=== PATIENT | female | born 1990 | race African-American/Black ===

== ENCOUNTER 2022-05-30 19:49 | Emergency (ER) | payer MEDICAID, SELFPAY ==
[2022-05-30 20:02] VITALS: BP 119/70; PULSE 77; RESP 14; TEMP 36.4; O2SAT 99; BMI 32.0
--- NOTE | 2022-05-30 20:19 | ED.ABDPAIN ---
HPI - Abdominal Pain General Chief Complaint: Abdominal Pain Stated Complaint: LUQ Pain Time Seen by Provider: 05/30/22 20:19 Source: patient and RN notes reviewed Mode of arrival: ambulatory Limitations: no limitations History of Present Illness HPI narrative: 31-year-old woman presenting to the emergency department with concern of left sided upper abdominal/rib area pain. Can be pleuritic at times. She has not had any recent cough or cold symptoms. No fever. She is not actually short of breath. No rash. Pain can be worse to sit up. She describes as a pressure/stitch/aching pain. At worst the shooting. Has been going on for 6+ days. Just is not resolving. She has not tried any treatment. Has never had anything like this before. Keeps coming back to describing it as kind of a stitch like he might experience when running. Relatively constant dull at times just does not notice it perhaps is it diminishes. Or perhaps as she is getting distracted. Does have an underlying history of IBS. She was wondering if maybe this was possibly related though at the same time says this is really different though than what she might expect. On exam the area that she is having pain in her abdomen at least would be the area where IBS might affect her. She has had a colonoscopy been noting elevated white count at that time but negative celiac testing. She notes herself to become hypokalemic with the prep requiring treatment in the emergency department. Early on the days of COVID a believe ?delta? had a ?double pneumonia? requiring a days of hospitalization. 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 Only other symptom remaining from that is sometimes she feels a mental or the word ?glitch?. We talking and suddenly just ?glitches?. Does have some lower back discomfort at this point. No hematuria no dysuria frequency urgency. She does acknowledge a family history of kidney stones particularly her aunt and maybe a cousin. Possibly her dad as well. Not a personal history. There has been no trauma to this area. She is not describing diarrhea or constipation. Presented to the urgent care earlier today and advised to go to the emergency department as did not feel he could do full workup at that time. Related Data Previous Rx's Medication Instructions Recorded indomethacin 50 mg capsule 50 mg PO TID #18 caps 05/30/22 Allergies Allergy/AdvReac Type Severity Reaction Status Date / Time No Known Drug Allergies Allergy Verified 05/30/22 20:06 Review of Systems Status of ROS Reports: 10 or more systems reviewed and unremarkable except as noted in History and below [facility] Social History Smoking Status: Never smoker How often do you have a drink containing alcohol: monthly or less AUDIT-C Alcohol total score: 1 Non-prescribed substance use: denies use Exam Narrative: Exam Narrative: Pleasant. NAD. Transitions without significant difficulty. Breathing easily. Cranial nerves 2-12 intact Moving all extremities without difficulty and well perfused peripherally. Lungs are clear with equal expansion excursion Cardiovascular with regular rate and rhythm no murmurs rubs or gallops appreciated. Abdomen with moderate tenderness to palpation of the left anterior lateral rib margin and left upper abdomen. Normoactive bowel sounds. No masses. Const: Vital Signs, click to edit/add: Vital Signs - 24 hr 05/30/22 20:02 Temperature 97.5 F L Pulse Rate [Pulse Oximeter] 77 Respiratory Rate 14 Blood Pressure [Ri ght Upper Arm] 119/70 Pulse Oximetry 99 Oxygen Delivery Me thod Room Air Documenting provider has reviewed patient's vital signs: yes Course Course Hospital Course: Interview and exam as above. Discussed pain management needs. Ordered for ibuprofen. Vital Signs Vital signs: Initial Vital Signs Temperature 97.5 F L 05/30/22 20:02 Temperature Source Temporal Artery Scan 05/30/22 20:02 Pulse Rate 77 05/30/22 20:02 Pulse Rhythm 05/30/22 20:02 Respiratory Rate 14 05/30/22 20:02 Blood Pressure 119/70 05/30/22 20:02 Blood Pressure Mean 86 05/30/22 20:02 Blood Pressure Position Sitting 05/30/22 20:02 Pulse Oximetry 99 05/30/22 20:02 Oxygen Delivery Method 05/30/22 20:02 Vital Signs Temperature 97.5 F L 05/30/22 20:02 Pulse Rate 77 05/30/22 20:02 Respiratory Rate 14 05/30/22 20:02 Blood Pressure 119/70 05/30/22 20:02 Pulse Oximetry 99 05/30/22 20:02 Oxygen Delivery Method 05/30/22 20:02 Temperature 97.5 F L 05/30/22 20:02 Pulse Rate 77 05/30/22 20:02 Respiratory Rate 14 05/30/22 20:02 Blood Pressure 119/70 05/30/22 20:02 Pulse Oximetry 99 05/30/22 20:02 Oxygen Delivery Method 05/30/22 20:02 MDM - Abdominal Pain Medical Records Attestation: I reviewed the patient's medical records. Lab Data Attestation: I reviewed the patient's lab results. Labs: Lab Results 05/30/22 05/30/22 05/30/22 Range/Units 21:35 21:35 21:35 WBC 5.48 (4.50-11.00) K/uL RBC 3.65 L (4.00-5.20) m/uL Hgb 10.0 L (12.0-16.0) gm/dL Hct 31.6 L (33.0-51.0) % MCV 87 (80-100) fL MCH 27 (26-34) pg MCHC 32 (32-36) gm/dL RDW Coeff of Bashir 16.3 H (11.5-15.5) % Plt Count 257 (140-440) K/uL Neut % (Auto) 37.8 L (42.0-72.0) % Lymph % (Auto) 50.5 H (20-44) % [place] % (Auto) 9.5 (0.0-11.0) % Eos % (Auto) 1.6 (0.0-7.0) % Baso % (Auto) 0.4 (0.0-3.0) % Neut # (Auto) 2.10 (1.7-7.0) K/uL Lymph # (Auto) 2.80 (0.90-2.90) K/uL [place] # (Auto) 0.50 (0.00-0.90) K/UL Eos # (Auto) 0.09 (0.00-0.50) K/uL Baso # (Auto) 0.02 (0.00-0.30) K/uL Abs Immat Gran (auto) 0.01 (0.00-0.30) K/uL ESR 5 (2-20) mm/hr D-Dimer Quant (PE/DVT) 0.31 (0.00-0.50) ug/ml Sodium (135-149) mmol/L Potassium (3.6-5.1) mmol/L Chloride (96-114) mmol/L Carbon Dioxide (20-32) mmol/L BUN (5-24) mg/dL Creatinine (0.5-1.5) mg/dL Estimated Creat Clear Estimated GFR ml/min Glucose (60-115) mg/dL Calcium (8.4-10.6) mg/dL Troponin I (0.01-0.04) ng/mL C-Reactive Protein (0.5-1.0) mg/dL HCG, Qual (Negative) Urine Color (Yellow) Urine Appearance (Clear) Urine pH (5.0-8.5) Ur Specific [place] (1.000-1.030) Urine Protein (Negative) Urine Glucose (UA) (Negative) Urine Ketones (Negative) Urine Blood (Negative) Urine Nitrite (Negative) Urine Bilirubin (Negative) Urine Urobilinogen (0.2-1.0) Ur Leukocyte Esterase (Negative) 05/30/22 05/30/22 Range/Units 21:35 21:46 WBC (4.50-11.00) K/uL RBC (4.00-5.20) m/uL Hgb (12.0-16.0) gm/dL Hct (33.0-51.0) % MCV (80-100) fL MCH (26-34) pg MCHC (32-36) gm/dL RDW Coeff of Bashir (11.5-15.5) % Plt Count (140-440) K/uL Neut % (Auto) (42.0-72.0) % Lymph % (Auto) (20-44) % [place] % (Auto) (0.0-11.0) % Eos % (Auto) (0.0-7.0) % Baso % (Auto) (0.0-3.0) % Neut # (Auto) (1.7-7.0) K/uL Lymph # (Auto) (0.90-2.90) K/uL [place] # (Auto) (0.00-0.90) K/UL Eos # (Auto) (0.00-0.50) K/uL Baso # (Auto) (0.00-0.30) K/uL Abs Immat Gran (auto) (0.00-0.30) K/uL ESR (2-20) mm/hr D-Dimer Quant (PE/DVT) (0.00-0.50) ug/ml Sodium 140 (135-149) mmol/L Potassium 3.9 (3.6-5.1) mmol/L Chloride 109 (96-114) mmol/L Carbon Dioxide 25 (20-32) mmol/L BUN 16 (5-24) mg/dL Creatinine 0.9 (0.5-1.5) mg/dL Estimated Creat Clear 63.86 Estimated GFR 87 ml/min Glucose 90 (60-115) mg/dL Calcium 8.4 (8.4-10.6) mg/dL Troponin I < 0.01 L (0.01-0.04) ng/mL C-Reactive Protein < 0.5 L (0.5-1.0) mg/dL HCG, Qual Negative (Negative) Urine Color Yellow (Yellow) Urine Appearance Clear (Clear) Urine pH 7.0 (5.0-8.5) Ur Specific [place] 1.025 (1.000-1.030) Urine Protein Negative (Negative) Urine Glucose (UA) Negative (Negative) Urine Ketones Negative (Negative) Urine Blood Negative (Negative) Urine Nitrite Negative (Negative) Urine Bilirubin Negative (Negative) Urine Urobilinogen 0.2 (0.2-1.0) Ur Leukocyte Esterase Negative (Negative) Laboratory evaluation was unremarkable. This included a normal D-dimer. At this point with normal vitals, mildly improved symptoms and no red flags in the lab, I do not think further evaluation is necessary at this time. ECG Data Attestation: I personally reviewed and interpreted this ECG as follows: (EKG shows a sinus bradycardia at 58) Discharge Plan Discharge Clinical Impression: Chest wall pain, Abdominal pain, Costochondritis Patient Disposition: Home, Self-Care Condition: Improved Additional Instructions: Admittedly costochondritis can be a bit of a diagnosis of exclusion. It seems also that you have got some underlying abdominal pain though this appears to be of a subacute/chronic nature for you. You can take 600 mg of ibuprofen 3 times daily, ideally with a little bit of food, over the next 6 days or take this indomethacin, also ideally with little bit of food, over the same period of time. Follow-up in clinic if not improved. Return to the emergency department for marked increase in persistent pain, shortness of breath, associated fever. Prescriptions: New indomethacin 50 mg capsule 50 mg PO TID Qty: 18 0RF Rx Instructions: administer with food or milk Follow Up/Referrals: Provider,Not a Local [Primary Care Provider] - Stand Alone Forms: [facility] Info Instructions
[2022-05-30] MEDS: IBUPROFEN 400 MG TABLET 800 MG PO (21:16)
--- NOTE | 2022-05-30 21:36 | ED.NURSE ---
Report given to ESPERANZA Cullen.
[2022-05-30 21:46] LABS: Basophils Absolute Auto 0.02 K/uL (0.00-0.30); Basophils Percent Auto 0.4 % (0.0-3.0); Eosinophils Absolute Auto 0.09 K/uL (0.00-0.50); Eosinophils Percent Auto 1.6 % (0.0-7.0); Hematocrit 31.6 % (33.0-51.0); Immature Granulocytes Abs Auto 0.01 K/uL (0.00-0.30); Lymphocytes Percent Auto 50.5 % (20-44); Mean Corpuscular HGB Conc 32 gm/dL (32-36); Mean Corpuscular Hemoglobin 27 pg (26-34); Mean Corpuscular Volume 87 fL (80-100); Monocytes Percent Auto 9.5 % (0.0-11.0); Neutrophils Percent Auto 37.8 % (42.0-72.0); Platelet Count* 257 K/uL (140-440); RDW Coefficient of Variation % 16.3 % (11.5-15.5); Red Blood Count 3.65 m/uL (4.00-5.20); White Blood Count* 5.48 K/uL (4.50-11.00)
[2022-05-30 21:54] LABS: Slide Review Reflex No
[2022-05-30 22:09] LABS: Chloride* 109 mmol/L (96-114); Sodium* 140 mmol/L (135-149)
[2022-05-30 22:10] LABS: Potassium* 3.9 mmol/L (3.6-5.1)
[2022-05-30 22:12] LABS: HCG Qualitative* Negative (Negative)
[2022-05-30 22:12] LABS: Creatinine* 0.9 mg/dL (0.5-1.5); Est. Creatinine Clearance* 63.86; Estimated Glomerular Filt Rate 87 ml/min
[2022-05-30 22:13] LABS: Blood Urea Nitrogen* 16 mg/dL (5-24); Calcium* 8.4 mg/dL (8.4-10.6); Carbon Dioxide* 25 mmol/L (20-32); Glucose* 90 mg/dL (60-115)
[2022-05-30 22:14] LABS: D Dimer Quantitative* 0.31 ug/ml (0.00-0.50)
[2022-05-30 22:20] LABS: C Reactive Protein* < 0.5 mg/dL (0.5-1.0)
[2022-05-30 22:25] LABS: Troponin I* < 0.01 ng/mL (0.01-0.04)
[2022-05-30 22:58] LABS: Erythrocyte SedimentationRate* 5 mm/hr (2-20)
[2022-05-30 23:01] LABS: Appearance Urine Clear (Clear); Bilirubin Urine Negative (Negative); Blood Urine Negative (Negative); Color Urine Yellow (Yellow); Glucose Urine Negative (Negative); Ketones Urine Negative (Negative); Leukocyte Esterase Urine Negative (Negative); Nitrite Urine Negative (Negative); Protein Urine Negative (Negative); Specific Gravity Urine 1.025 (1.000-1.030); Urobilinogen Urine 0.2 (0.2-1.0)
== END 2022-05-30 23:24 | disposition home or self-care (01) ==
PROVIDERS: Emergency Provider Family Medicine
DX: R07.89 Other chest pain (principal); M94.0 Chondrocostal junction syndrome [Tietze]
CPT/HCPCS: 36415; 80048; 81003; 84484; 84703; 85025; 85379; 85651; 86140; 93005; 99284; A9270